=== PATIENT | female | born 1975 | race Caucasian/White ===

== ENCOUNTER → 2016-10-11 | Outpatient (CLI) | payer BC ==
[~2016-10-11] MED LIST: HYDR1CAP2; HYDR1TAB PO
--- NOTE | 2016-10-11 19:54 | Diagnostic Imaging Report ---
Right breast diagnostic mammogram. INDICATION: Followup nodule in the outer aspect of the right breast. The current study was also evaluated with a Computer Aided Detection (CAD) system. FINDINGS: Again seen lobulated 6 mm nodule in the lateral aspect of the right breast without change with suggestion of central lucency may relate to an intramammary lymph node. Heterogeneously dense fibroglandular tissue is seen in the right breast which may decrease mammographic sensitivity without significant change. IMPRESSION: Stable 6 mm nodule in the outer aspect of the right breast may relate to an intramammary lymph node. Another followup in 6 months when the patient is due for her bilateral mammogram is recommended. ACR BI-RADS Category 3: Probably benign findings. Result letter will be mailed to the patient. Note: At least 10% of breast cancer is not imaged by mammography. Dictated by: Dictated on workstation # [id number]
== END ==
LOC: RAD 08:58
PROVIDERS: ATTEND Nurse Practitioner Family
DX: R92.8 Other abnormal and inconclusive findings on diagnostic imaging of breast (principal)

== ENCOUNTER → 2017-02-25 | Outpatient (CLI) | payer BC ==
--- NOTE | 2017-02-25 19:03 | Diagnostic Imaging Report ---
Bilateral diagnostic mammogram 2D views with tomosynthesis. The current study was also evaluated with a Computer Aided Detection (CAD) system. INDICATION: Follow-up nodule in the upper-outer right breast. COMPARISON: 10/11/2016. FINDINGS: The breasts are composed of heterogeneously dense parenchyma which may decrease mammographic sensitivity. There is no suspicious mass, architectural distortion, or suspicious cluster of calcifications seen. Nodule in the upper-outer aspect of the right breast is unchanged and is consistent with an intramammary lymph node. Allowing for technique and positional differences, no suspicious change is seen. IMPRESSION: Dense breasts with no definite change. ACR BI-RADS Category 2: Benign findings. Result letter will be mailed to the patient. Note: At least 10% of breast cancer is not imaged by mammography. Dictated on workstation # [id number]
== END ==
LOC: RAD 07:46
PROVIDERS: ATTEND Nurse Practitioner Family
DX: N63 Unspecified lump in breast (principal)
CPT/HCPCS: 77066

== ENCOUNTER → 2018-12-07 | Outpatient (CLI) | payer BC ==
--- NOTE | 2018-12-07 16:51 | Diagnostic Imaging Report ---
PROCEDURE: US Non-ob pelvis comp/trans. TECHNIQUE: Multiple real-time grayscale images were obtained of the pelvis in various projections endovaginally. Transabdominal imaging was also performed. INDICATION: Right-sided pelvic pain. FINDINGS: Uterus measures 10.0 x 6.4 x 5.5 cm. Endometrium is 5 mm in thickness. There appears to be a fibroid in the anterior uterus near the lower uterine segment measuring 2.1 x 1.8 x 2.4 cm. Ovaries were not visualized. There is no adnexal mass or free fluid detected. IMPRESSION: 1. Probable uterine fibroid. 2. Nonvisualized ovaries. Dictated by: Dictated on workstation # [id number]
== END ==
LOC: RAD 14:59
PROVIDERS: ATTEND Nurse Practitioner Family
DX: N92.0 Excessive and frequent menstruation with regular cycle (principal); R10.2 Pelvic and perineal pain
CPT/HCPCS: 76830; 76856

== ENCOUNTER 2019-02-01 23:52 | Emergency (ER) | payer BC ==
[~2019-02-01] VITALS: Ht 180.3 cm; Wt 90.7 kg
[2019-02-02 00:09] VITALS: BP 117/74
[2019-02-02 00:33] LABS: BILIRUBIN,URINE NEGATIVE (NEGATIVE); CLARITY,URINE CLEAR; COLOR,URINE YELLOW; GLUCOSE, URINE (UA) NEGATIVE (NEGATIVE); KETONES,URINE NEGATIVE (NEGATIVE); LEUKOCYTE ESTERASE ,URINE NEGATIVE (NEGATIVE); NITRITE,URINE NEGATIVE (NEGATIVE); PH,URINE 6 (5-9); PROTEIN,URINE NEGATIVE (NEGATIVE); UROBILINOGEN,URINE NORMAL (NORMAL)
[2019-02-02 00:41] LABS: BACTERIA,URINE NEGATIVE /HPF; SQUAMOUS EPITHELIAL CELL,UR 0-2 /HPF
[2019-02-02 00:46] LABS: AMPHETAMINE SCREEN, URINE NEGATIVE (NEGATIVE); BARBITURATE SCREEN URINE NEGATIVE (NEGATIVE); BENZODIAZEPINES SCREEN URINE NEGATIVE (NEGATIVE); CANNABINOID SCREEN, URINE NEGATIVE (NEGATIVE); COCAINE SCREEN URINE NEGATIVE (NEGATIVE); METHADONE STAT NEGATIVE (NEGATIVE); METHAMPHETAMINE SCREEN URINE S NEGATIVE (NEGATIVE); OPIATE SCREEN URINE POSITIVE (NEGATIVE); OXYCODONE STAT NEGATIVE (NEGATIVE); PROPOXYPHENE STAT NEGATIVE (NEGATIVE); TRICYCLIC ANTIDEPRESSANTS SCRE POSITIVE (NEGATIVE)
[2019-02-02 00:53] LABS: BASOPHILS # (AUTO) 0.1 10^3/uL (0.0-0.1); BASOPHILS % (AUTO) 1 % (0-10); EOSINOPHILS # (AUTO) 0.2 10^3/uL (0.0-0.3); EOSINOPHILS % (AUTO) 3 % (0-10); HEMATOCRIT 39 % (35-52); HEMOGLOBIN 12.9 G/DL (11.5-16.0); LYMPHOCYTES # (AUTO) 1.9 X 10^3 (1.0-4.0); LYMPHOCYTES % (AUTO) 31 % (12-44); MEAN CORPUSCULAR HEMOGLOBIN 30 PG (25-34); MEAN CORPUSCULAR HGB CONC 33 G/DL (32-36); MEAN CORPUSCULAR VOLUME 90 FL (80-99); MEAN PLATELET VOLUME 9.1 FL (7.4-10.4); MONOCYTES # (AUTO) 0.4 X 10^3 (0.0-1.0); MONOCYTES % (AUTO) 6 % (0-12); NEUTROPHILS # (AUTO) 3.6 X 10^3 (1.8-7.8); NEUTROPHILS % (AUTO) 59 % (42-75); PLATELET COUNT 278 10^3/uL (130-400); RED CELL DISTRIBUTION WIDTH 14.1 % (10.0-14.5); WHITE BLOOD COUNT 6.2 10^3/uL (4.3-11.0)
[2019-02-02 01:06] LABS: ALANINE AMINOTRANSFERASE 20 U/L (0-55); ALKALINE PHOSPHATASE 88 U/L (40-136); BILIRUBIN,TOTAL 0.1 MG/DL (0.1-1.0); BUN/CREATININE RATIO 7; CALCIUM 8.6 MG/DL (8.5-10.1); CARBON DIOXIDE 18 MMOL/L (21-32); CHLORIDE 106 MMOL/L (98-107); CREATININE SERUM 0.75 MG/DL (0.60-1.30); GFR ESTIMATED > 60; GLUCOSE 111 MG/DL (70-105); POTASSIUM 3.4 MMOL/L (3.6-5.0); SODIUM 137 MMOL/L (135-145); TOTAL PROTEIN 6.8 GM/DL (6.4-8.2)
[2019-02-02 01:17] LABS: INR 0.9 (0.8-1.4); PROTHROMBIN TIME PATIENT 12.3 SEC (12.2-14.7)
[2019-02-02] MEDS ORDERED: AZITHROMYCIN 250 MG TAB (ZITHROMAX) PO ONE (01:30)
[2019-02-02] MEDS ORDERED: methylPREDNISolone 125 MG (Solu-MEDROL) VIAL IVP ONE (01:30)
[2019-02-02] MEDS ORDERED: PROM118S4 PO (01:30)
[2019-02-02] MEDS ORDERED: METH4TAB PO (01:30)
[2019-02-02] MEDS ORDERED: AZIT500T PO (01:30)
[2019-02-02] MEDS ORDERED: PROMETHAZINE/ CODEINE SYRUP 5 ML UDC PO ONE (01:30)
[2019-02-02] MEDS ORDERED: BENZONATATE 100 MG (TESSALON) CAPSULE PO SCH (01:30)
[2019-02-02] MEDS ORDERED: cefTRIAXone FOR IV USE 1,000 MG in WATER (STERILE) FOR INJECTION 10 ML IV ONE (01:30)
[2019-02-02] MEDS ORDERED: BENZ100C18 PO (01:30)
[2019-02-02] MEDS ORDERED: CEFD300C3 PO (01:30)
--- NOTE | 2019-02-02 01:31 | ED Cough/URI ---
General Chief Complaint: Cough/Cold/Flu Symptoms Stated Complaint: CONGESTION,COUGH,POSS TEMP Nursing Triage Note: C/O "BEING SICK FOR A WEEK" COUGH AND SHORTNESS OF BREATH TONIGHT Sepsis Screen: No Definite Risk Source: patient History of Present Illness Date Seen by Provider: Feb 02, 2019 Time Seen by Provider: 00:13 Initial Comments PT ARRIVES VIA POV FROM HOME C/O NASAL CONGESTION AND PRODUCTIVE COUGH WITH GREEN SPUTUM X 1 WEEK HAS HAD SUBJECTIVE FEVER AND SWEATS C/O SHORTNESS OF BREATH TONIGHT, WITH COUGHING CHEST HURTS WITH COUGHING NO RELIEF WITH OTC TUSSIN COUGH MEDICATION NO KNOWN SICK CONTACTS NO HISTORY OF RESPIRATORY PROBLEMS PT SMOKES 1 PPD PT ALSO DRINKS 4-6 BEERS EVERY DAY, INCLUDING TODAY PT HAS BEEN IN [place] ALL WEEK AND JUST GOT BACK TODAY, AND HAS AN APPOINTMENT WITH DR. JOSHI IN THE MORNING FOR THIS PROBLEM HAS NOT SOUGHT CARE UNTIL TONIGHT. LMP 1 WEEK AGO. NO CONTROL. WAS SUPPOSED TO START OCP'S BUT HAS NOT STARTED THEM YET. PCP: DR. JOSHI Allergies and Home Medications Allergies Coded Allergies: No Known Drug Allergies (Unverified Allergy, Mild, 09/20/09) Home Medications Azithromycin 500 Mg Tablet, 500 MG PO DAILY FOR INFECTION Prescribed by: YEVGENIY BILLINGSLEY on 02/02/19129 Benzonatate 100 Mg Capsule, 1-2 TAB PO TID Prescribed by: YEVGENIY BILLINGSLEY on 02/02/19129 Cefdinir 300 Mg Capsule, 300 MG PO BID Prescribed by: YEVGENIY BILLINGSLEY on 02/02/19129 D-Methorphan Hb/Prometh HCl 118 Ml Syrup, 1-2 TSP PO Q4H Prescribed by: YEVGENIY BILLINGSLEY on 02/02/19129 Hydrocodone Bit/Acetaminophen 1 Each Tablet, 1-2 EACH PO Q4HR PRN Prescribed by: MARILEE LA on 09/20/09 1347 Methylprednisolone 4 Mg Tab.ds.pk, 4 MG PO UD Prescribed by: YEVGENIY BILLINGSLEY on 02/02/19129 Patient Home Medication List Home Medication List Reviewed: Yes Review of Systems Review of Systems Constitutional: chills, diaphoresis, fever EENTM: see HPI, nose congestion Respiratory: see HPI, cough, phlegm, short of breath; No wheezing Cardiovascular: see HPI, chest pain Gastrointestinal: no symptoms reported Genitourinary: no symptoms reported : No LMP: Jan 23, 2019 Musculoskeletal: no symptoms reported Skin: no symptoms reported Psychiatric/Neurological: No Symptoms Reported Hematologic/Lymphatic: No Symptoms Reported Immunological/Allergic: no symptoms reported Past Ihzrtgz-Poziij-Oitbmt Hx Patient Social History Alcohol Use: Regular Use (4-6 BEERS A DAY, EVERY DAY) Number of Drinks Today: 5 Alcohol Beverage of Choice: Beer Recreational Drug Use: No Smoking Status: Current Everyday Smoker (1 PPD) Type Used: Cigarettes (1 PPD) Recent Foreign Travel: No Contact w/Someone Who Travel: No Recent Infectious Disease Expo: No Recent Hopitalizations: No Physical Abuse: No Sexual Abuse: No Mistreated: No Fear: No Seasonal Allergies Seasonal Allergies: No Past Medical History Surgeries: Yes ("BILATERAL MAXILLARY DISLOCATION WITH SURGICAL INTERVENTION"; RIGHT SHOULDER SURGERY) Appendectomy, Section, Orthopedic, Tonsillectomy Respiratory: No Cardiac: Yes Hypertension Neurological: No : No Last Menstrual Period: Jan 23, 2019 Reproductive Disorders: No Genitourinary: No Gastrointestinal: No Musculoskeletal: Yes (RIGHT SHOULDER SURGERY; CHRONIC OPIATE AND MUSCLE RELAXANT USE. ) Arthritis Endocrine: Yes (SCLERODERMA) HEENT: No Cancer: No Psychosocial: Yes Depression Integumentary: No Blood Disorders: No Physical Exam Vital Signs - First Documented Capillary Refill : Less Than 3 Seconds Height: 5'11" Weight: 200lbs. oz. 90.522038ip; 27.89 BMI Method:Stated General Appearance: WD/WN, no apparent distress, other (CONTINUOUS, HARSH FORCED, DRY COUGH. 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, no motor/sensory deficits, alert, normal mood/affect, oriented x 3 Skin: normal color, warm/dry Focused Exam Lactate Level 02/02/19 00:33: Lactic Acid Level 2.00 Lactic Acid Level Laboratory Tests Test 02/02/19 00:33 Lactic Acid Level 2.00 MMOL/L (0.50-2.00) Progress/Results/Core Measures Suspected Sepsis Recent Fever Within 48 Hours: No Infection Criteria Present: Suspected New Infection New/Unexplained Altered Menta: No Sepsis Screen: No Definite Risk SIRS Temperature:97.6 Pulse: 91 Respiratory Rate: 20 Laboratory Tests 02/02/19 00:44: White Blood Count 6.2 Blood Pressure 117 /74 Mean: 88 02/02/19 00:33: Lactic Acid Level 2.00 Laboratory Tests 02/02/19 00:33: Creatinine 0.75, Total Bilirubin 0.1 02/02/19 00:44: Platelet Count 278 02/02/19 00:54: INR Comment 0.9 Results/Orders Lab Results Laboratory Tests Test 02/02/19 00:28 02/02/19 00:33 02/02/19 00:44 02/02/19 00:54 Range/Units Urine Color YELLOW Urine Clarity CLEAR Urine pH 6 5-9 Urine Specific [place] 1.010 L 1.016-1.022 Urine Protein NEGATIVE NEGATIVE Urine Glucose (UA) NEGATIVE NEGATIVE Urine Ketones NEGATIVE NEGATIVE Urine Nitrite NEGATIVE NEGATIVE Urine Bilirubin NEGATIVE NEGATIVE Urine Urobilinogen NORMAL NORMAL MG/DL Urine Leukocyte Esterase NEGATIVE NEGATIVE Urine RBC (Auto) NEGATIVE NEGATIVE Urine RBC NONE /HPF Urine WBC NONE /HPF Urine Squamous Epithelial Cells 0-2 /HPF Urine Crystals NONE /LPF Urine Bacteria NEGATIVE /HPF Urine Casts NONE /LPF Urine Mucus SMALL H /LPF Urine Culture Indicated CULTURE PENDING Urine Opiates Screen POSITIVE H NEGATIVE Urine Oxycodone Screen NEGATIVE NEGATIVE Urine Methadone Screen NEGATIVE NEGATIVE Urine Propoxyphene Screen NEGATIVE NEGATIVE Urine Barbiturates Screen NEGATIVE NEGATIVE Ur Tricyclic Antidepressants Screen POSITIVE H NEGATIVE Urine Phencyclidine Screen NEGATIVE NEGATIVE Urine Amphetamines Screen NEGATIVE NEGATIVE Urine Methamphetamines Screen NEGATIVE NEGATIVE Urine Benzodiazepines Screen NEGATIVE NEGATIVE Urine Cocaine Screen NEGATIVE NEGATIVE Urine Cannabinoids Screen NEGATIVE NEGATIVE Sodium Level 137 135-145 MMOL/L Potassium Level 3.4 L 3.6-5.0 MMOL/L Chloride Level 106 98-107 MMOL/L Carbon Dioxide Level 18 L 21-32 MMOL/L Anion Gap 13 5-14 MMOL/L Blood Urea Nitrogen 5 L 7-18 MG/DL Creatinine 0.75 0.60-1.30 MG/DL Estimat Glomerular Filtration Rate > 60 BUN/Creatinine Ratio 7 Glucose Level 111 H 70-105 MG/DL Lactic Acid Level 2.00 0.50-2.00 MMOL/L Calcium Level 8.6 8.5-10.1 MG/DL Corrected Calcium 8.6 8.5-10.1 MG/DL Total Bilirubin 0.1 0.1-1.0 MG/DL Aspartate Amino Transf (AST/SGOT) 25 5-34 U/L Alanine Aminotransferase (ALT/SGPT) 20 0-55 U/L Alkaline Phosphatase 88 40-136 U/L Total Protein 6.8 6.4-8.2 GM/DL Albumin 4.0 3.2-4.5 GM/DL Serum Test, Qualitative NEGATIVE NEGATIVE Serum Alcohol 125 H <10 MG/DL White Blood Count 6.2 4.3-11.0 10^3/uL Red Blood Count 4.34 L 4.35-5.85 10^6/uL Hemoglobin 12.9 11.5-16.0 G/DL Hematocrit 39 35-52 % Mean Corpuscular Volume 90 80-99 FL Mean Corpuscular Hemoglobin 30 25-34 PG Mean Corpuscular Hemoglobin Concent 33 32-36 G/DL Red Cell Distribution Width 14.1 10.0-14.5 % Platelet Count 278 130-400 10^3/uL Mean Platelet Volume 9.1 7.4-10.4 FL Neutrophils (%) (Auto) 59 42-75 % Lymphocytes (%) (Auto) 31 12-44 % Monocytes (%) (Auto) 6 0-12 % Eosinophils (%) (Auto) 3 0-10 % Basophils (%) (Auto) 1 0-10 % Neutrophils # (Auto) 3.6 1.8-7.8 X 10^3 Lymphocytes # (Auto) 1.9 1.0-4.0 X 10^3 Monocytes # (Auto) 0.4 0.0-1.0 X 10^3 Eosinophils # (Auto) 0.2 0.0-0.3 10^3/uL Basophils # (Auto) 0.1 0.0-0.1 10^3/uL Prothrombin Time 12.3 12.2-14.7 SEC INR Comment 0.9 0.8-1.4 Activated Partial Thromboplast Time 31 24-35 SEC Micro Results Microbiology 02/02/19 Influenza Types A,B Antigen ([facility]) - Final, Complete My Orders Orders - YEVGENIY BILLINGSLEY DO Cbc With Automated Diff (02/02/19:17) Comprehensive Metabolic Panel (02/02/19:17) Blood Culture (02/02/19:17) Sputum Culture (02/02/19:17) Urinalysis (02/02/19:17) Urine Culture (02/02/19:17) Protime With Inr (02/02/19:17) Partial Thromboplastin Time (02/02/19:17) Ed Iv/Invasive Line Start (02/02/19:17) Ed Iv/Invasive Line Start (02/02/19:17) Vital Signs Adult Sepsis Patie Q15M (02/02/19:17) O2 (02/02/19:17) Remove Rings In Anticipation O (02/02/19:17) Lactic Acid Analyzer (02/02/19:17) Monitor-Rhythm Ecg Trace Only (02/02/19:17) Chest Pa/Lat (2 View) (02/02/19:17) Hcg,Qualitative Serum (02/02/19:17) Alcohol (02/02/19 00:24) Drug Screen Stat (Urine) (02/02/19 00:24) Influenza A And B Antigens (02/02/19 00:24) Ceftriaxone For Iv Use (Rocephin For I (02/02/19 01:30) Methylprednisolone Sod Succ (Solu-Medrol (02/02/19 01:30) Benzonatate Capsule (Tessalon Perles) (02/02/19 01:30) Promethazine/ Codeine Syrup (Phenergan W (02/02/19 01:30) Azithromycin Tablet (Zithromax Tablet) (02/02/19 01:30) Medications Given in ED Current Medications Medications Dose Ordered Sig/Tonie Route Start Time Stop Time Status Last Admin Dose Admin Azithromycin 500 mg ONCE ONCE PO 02/02/19 01:30 02/02/19 01:31 DC 02/02/19 01:51 500 MG Ceftriaxone Sodium 1000 mg/ Sterile Water 10 ml @ 200 mls/hr ONCE ONCE IV 02/02/19 01:30 02/02/19 01:32 DC 02/02/19 01:50 200 MLS/HR Methylprednisolone Sodium Succinate 125 mg ONCE ONCE IVP 02/02/19 01:30 02/02/19 01:31 DC 02/02/19 01:50 125 MG Promethazine HCl/ Codeine 5 ml ONCE ONCE PO 02/02/19 01:30 02/02/19 01:31 DC 02/02/19 01:51 5 ML Vital Signs/I&O 02/02/19 02/02/19 02/02/19 02/02/19 00:09 00:09 00:09 00:09 Temp 97.6 97.6 97.6 Pulse 91 91 91 Resp 20 20 20 B/P (MAP) 117/74 117/74 (88) 117/74 (88) Pulse Ox 97 97 97 O2 Delivery Room Air Room Air Room Air 02/02/19 01:58 Temp 97.6 Pulse 84 Resp 20 B/P (MAP) 137/92 (107) Pulse Ox 95 O2 Delivery Room Air Capillary Refill : Less Than 3 Seconds Blood Pressure Mean: 88 Progress Note : Progress Note GIVEN TESSALON AND PHENERGAN + CODEINE--NO FURTHER COUGHING FOR REMAINDER OF ER STAY VITALS REMAINED STABLE FOR ER STAY Diagnostic Imaging Comments CXR--NO ACUTE PROCESS, PENDING RADIOLOGIST REVIEW Reviewed: Reviewed by Me Departure Impression Primary Impression: Bronchitis Additional Impressions: Upper respiratory infection Alcohol intoxication in active alcoholic Disposition: 01 HOME, SELF-CARE Condition: Stable Departure-Patient Inst. Referrals: BAY JOSHI MD (PCP/Family) Primary Care Physician Patient Instructions: Acute Bronchitis, Adult (DC), Bacterial Upper Respiratory Infection, Adult (DC) Add. Discharge Instructions: LOTS OF CLEAR LIQUIDS TYLENOL 1 GRAM 4 TIMES A DAY NEEDED FOR PAIN OR FEVER NO ALCOHOL NO SMOKING FOLLOW UP WITH DR. JOSHI FOR FURTHER CARE All discharge instructions reviewed with patient and/or family. Voiced understanding. Scripts Azithromycin (Zithromax) 500 Mg Tablet 500 MG PO DAILY, #5 TAB FOR INFECTION Prov: YEVGENIY BILLINGSLEY DO 02/02/19 Benzonatate (TESSALON PERLES) 100 Mg Capsule 1-2 TAB PO TID for Cough, #30 CAP Prov: YEVGENIY BILLINGSLEY DO 02/02/19 D-Methorphan Hb/Prometh HCl (Promethazine-Dm Syrup) 118 Ml Syrup 1-2 TSP PO Q4H for Cough, #120 ML Prov: YEVGENIY BILLINGSLEY DO 02/02/19 Methylprednisolone (Medrol) 4 Mg Tab.ds.pk 4 MG PO UD, #1 PKG Prov: YEVGENIY BILLINGSLEY DO 02/02/19 Cefdinir (Cefdinir) 300 Mg Capsule 300 MG PO BID for FOR INFECTION, #20 CAP Prov: YEVGENIY BILLINGSLEY DO 02/02/19 YEVGENIY BILLINGSLEY DO Feb 02, 2019 01:31
[2019-02-02 01:58] VITALS: BP 137/92
--- NOTE | 2019-02-02 06:42 | Diagnostic Imaging Report ---
EXAM: CHEST PA/LAT (2 VIEW) INDICATION: Cough. COMPARISON: 01/31/2008. FINDINGS: Normal heart size and pulmonary vascularity. No dense consolidation, pleural effusion or pneumothorax. No acute osseous findings. No significant change. IMPRESSION: Negative chest. Dictated by: Dictated on workstation # [id number]
== END 2019-02-02 02:00 | disposition home or self-care (01) ==
LOC: EDUNIT# 23:52 → ER 23:54
DX: J40 Bronchitis, not specified as acute or chronic (principal); J06.9 Acute upper respiratory infection, unspecified; I10 Essential (primary) hypertension; F32.9 Major depressive disorder, single episode, unspecified; F10.229 Alcohol dependence with intoxication, unspecified; F17.210 Nicotine dependence, cigarettes, uncomplicated; Z90.89 Acquired absence of other organs; Y90.6 Blood alcohol level of 120-199 mg/100 ml
CPT/HCPCS: 36415; 71046; 80053; 80306; 80320; 81000; 83605; 84703; 85025; 85610; 85730; 87040; 87088; 87804; 93041; 96374; 96375

== ENCOUNTER → 2020-06-10 | Outpatient (CLI) | payer BC ==
[~2020-06-10] MED LIST changes: +AZIT500T PO; +BENZ100C18 PO; +CEFD300C3 PO; +METH4TAB PO; +PROM118S5 PO
--- NOTE | 2020-06-10 21:05 | Diagnostic Imaging Report ---
Digital mammogram, bilateral screening COMPARISON: 02/25/2017. At this time, there are no current complaints. The current study was also evaluated with a Computer Aided Detection (CAD) system. FINDINGS: The fibroglandular tissue in both breasts is heterogeneously dense. This does limit the sensitivity of this exam. Overall, there does not appear to have been any significant change when compared to the prior study. No primary or secondary sign of malignancy is noted. IMPRESSION: 1. There is no radiographic evidence for malignancy. 2. The patient should have her annual bilateral screening mammogram on schedule in May of 2021. ACR category 1 ACR BI-RADS Category 1: Negative. Result letter will be mailed to the patient. Note: At least 10% of breast cancer is not imaged by mammography. Dictated by: Dictated on workstation # [id number]
== END ==
LOC: RAD 13:15
PROVIDERS: ATTEND Family Medicine
DX: Z12.31 Encounter for screening mammogram for malignant neoplasm of breast (principal)
CPT/HCPCS: 77063; 77067

== ENCOUNTER 2021-12-07 22:32 | Emergency (ER) | payer BC ==
[2021-12-07 22:50] VITALS: BP 177/123
[2021-12-07] MEDS ORDERED: ONDANSETRON 4 MG (ZOFRAN) ORAL DISSOLVE TAB PO STA (23:06)
[2021-12-07] MEDS ORDERED: ONDA4TAB11 PO (23:09)
[2021-12-07] MEDS ORDERED: KETO10TA PO (23:09)
--- NOTE | 2021-12-07 23:09 | ED General ---
General Chief Complaint: Head/Cervical Problems Stated Complaint: COVID POSITIVE/HEADACHE/NAUSEA/COUGH/FEVER Nursing Triage Note: pt presents with c/o h/a. reports she was covid + this morning and started on steroids. reports she has taken three hydrocodone today with the last dose being at 2030. reports no relief of h/a Source of Information: Patient History of Present Illness Date Seen by Provider: Dec 07, 2021 Time Seen by Provider: 22:55 Initial Comments PT ARRIVES VIA POV FROM HOME STATES SHE STARTED GETTING SICK YESTERDAY WITH : -SUBJECTIVE FEVER AND CHILLS AND SWEATS--HAS NOT CHECKED HER TEMP AT ANY TIME -NON-PRODUCTIVE COUGH AND CONGESTION -CLEAR NASAL DRAINAGE -MILD SORE THROAT -MILD NAUSEA, NO VOMITING. NO DIARRHEA -HEADACHE--IS HER MAIN COMPLAINT NOW -BODY ACHES TESTED + FOR COVID-19 EARLIER TODAY AT [facility], NO RX OR TREATMENT GIVEN PT HAS TAKEN A TOTAL OF 3 HYDROCODONE THROUGHOUT THE DAY TODAY, LAST DOSE WAS AT 2030, WELL 2 IBUPROFEN THIS MORNING STATES NO RELIEF OF HEADACHE NO SHORTNESS OF BREATH NO NECK PAIN OR STIFFNESS NO VISION CHANGES, BUT IS LIGHT SENSITIVE NO LOSS OF TASTE/SMELL PT HAS NOT HAD COVID VACCINE PT STATES SHE HAS HAD COVID "4 TIMES" STATES THE FIRST TIME WAS IN APRIL OF 2019--NO TESTS WERE DONE, IT WAS NOT PREVALENT IN [place] spring--BUT PT STATES SHE "KNOWS SHE HAD IT THEN" 2 OTHER TIMES SHE DID NOT RECEIVE ANY TREATMENT FOR PT HAS HISTORY OF HTN, AND TOOK 1 METOPROLOL AT 1700 TODAY. PCP: DR. JOSHI Allergies and Home Medications Allergies Coded Allergies: No Known Drug Allergies (Unverified Allergy, Mild, 09/20/09) Patient Home Medication List Home Medication List Reviewed: Yes Azithromycin (Zithromax) 500 Mg Tablet, 500 MG PO DAILY Prescribed by: YEVGENIY BILLINGSLEY on 02/02/19129 Benzonatate (Tessalon Perles) 100 Mg Capsule, 1-2 TAB PO TID Prescribed by: YEVGENIY BILLINGSLEY on 02/02/19129 Cefdinir (Cefdinir) 300 Mg Capsule, 300 MG PO BID Prescribed by: YEVGENIY BILLINGSLEY on 02/02/19129 D-Methorphan Hb/Prometh HCl (Promethazine-Dm Syrup) 118 Ml Syrup, 1-2 TSP PO Q4H Prescribed by: YEVGENIY BILLINGSLEY on 02/02/19 013 Hydrocodone Bit/Acetaminophen (Vicodin 5-500 Tablet) 1 Each Tablet, 1-2 EACH PO Q4HR PRN Prescribed by: MARILEE LA on 09/20/09 1347 Ketorolac Tromethamine (Ketorolac Tromethamine) 10 Mg Tablet, 10 MG PO Q6H Prescribed by: YEVGENIY BILLINGSLEY on 12/07/212308 Methylprednisolone (Medrol) 4 Mg Tab.ds.pk, 4 MG PO UD Prescribed by: YEVGENIY BILLINGSLEY on 02/02/19129 Ondansetron (Ondansetron Odt) 4 Mg Tab.rapdis, 4 MG PO Q4H Prescribed by: YEVGENIY BILLINGSLEY on 12/07/212308 Review of Systems Review of Systems Constitutional: see HPI, chills, diaphoresis, fever, malaise EENTM: see HPI, nose congestion, throat pain Respiratory: see HPI, cough; No short of breath Cardiovascular: no symptoms reported Gastrointestinal: see HPI; No abdominal pain, No diarrhea; nausea; No vomiting Genitourinary: no symptoms reported Musculoskeletal: no symptoms reported Skin: no symptoms reported; No rash Psychiatric/Neurological: See HPI, Headache Hematologic/Lymphatic: No Symptoms Reported Immunological/Allergic: no symptoms reported Past Afjtyrz-Dtlhew-Axoefy Hx Patient Social History Tobacco Use?: Yes (1 PPD) Tobacco type used: Cigarettes Smoking Status: Current Everyday Smoker Substance use?: Yes Substance type: Marijuana Additional substance use comme: CHRONIC OPIATE AND MUSCLE RELAXANT USE Substance frequency: Daily Alcohol Use?: Yes (HX OF ABUSE, CLAIMS TO HAVE "CUT BACK" "4-6 BEERS A DAY" ) Alcohol type: Beer Alcohol Frequency: Daily Pt feels they are or have been: No Immunizations Up To Date Influenza Vaccine Up-to-Date: No; Not Current Seasonal Allergies Seasonal Allergies: No Past Medical History Surgeries: Yes Appendectomy, Section, Orthopedic, Tonsillectomy Respiratory: No Cardiac: Yes Hypertension Neurological: No : No Last Menstrual Period: Nov 30, 2021 Reproductive Disorders: No Genitourinary: No Gastrointestinal: No Musculoskeletal: Yes (RIGHT SHOULDER SURGERY; CHRONIC OPIATE AND MUSCLE RELAXANT USE. ) Arthritis Endocrine: Yes (SCLERODERMA) HEENT: No Cancer: No Psychosocial: Yes Depression Integumentary: No Blood Disorders: No Physical Exam Vital Signs Vital Signs - First Documented 12/07/21 22:50 Temp 37.6 Pulse 78 Resp 18 B/P (MAP) 177/123 (141) Pulse Ox 96 O2 Delivery Room Air Capillary Refill : Height, Weight, BMI Height: 5'11" Weight: 200lbs. oz. 90.127414gd; 27.89 BMI Method:Stated General Appearance: No Apparent Distress, WD/WN HEENT: PERRL/EOMI, TMs Normal, Normal ENT Inspection, Pharynx Normal, Moist Mucous Membranes, Photophobia (MILD) Neck: Full Range of Motion, Normal Inspection, Non Tender, Supple; No Lymphadenopathy (L), No Lymphadenopathy (R) Respiratory: Normal Breath Sounds, No Accessory Muscle Use, No Respiratory Distress Cardiovascular: Regular Rate, Rhythm, No Edema, No JVD, No Murmur, Normal Peripheral Pulses Gastrointestinal: Non Tender, Soft Extremity: Normal Capillary Refill, Normal Inspection, No Pedal Edema Neurologic/Psychiatric: Alert, Oriented x3, No Motor/Sensory Deficits, Normal Mood/Affect, drink mixer II-XII Norm as Tested Skin: Normal Color, Warm/Dry; No Rash Progress/Results/Core Measures Suspected Sepsis SIRS Temperature: Pulse: 78 Respiratory Rate: 18 Blood Pressure 177 /123 Mean: 141 Results/Orders My Orders Orders - YEVGENIY BILLINGSLEY DO Ketorolac Injection (Toradol Injection) (12/07/21 23:15) Ondansetron Oral Dissolve Tab (Zofran (12/07/21 23:06) Medications Given in ED Current Medications Medications Dose Ordered Sig/Tonie Route Start Time Stop Time Status Last Admin Dose Admin Ketorolac Tromethamine 60 mg ONCE ONCE IM 12/07/21 23:15 12/07/21 23:16 DC 12/07/21 23:13 60 MG Vital Signs/I&O 12/07/21 22:50 Temp 37.6 Pulse 78 Resp 18 B/P (MAP) 177/123 (141) Pulse Ox 96 O2 Delivery Room Air Capillary Refill : Blood Pressure Mean: 141 Progress Note : Progress Note PLACED IN ISOLATION ROOM PPE WORN AT ALL TIMES GIVEN TORADOL AND ZOFRAN PT DECLINES ANY TREATMENT FOR COVID AT THIS TIME. ONLY WANTS MEDICATIONS FOR HER HEADACHE AND NAUSEA Departure Impression Primary Impression: COVID-19 virus infection Disposition: HOME, SELF-CARE Condition: Stable Departure-Patient Inst. Decision time for Depature: 23:10 Referrals: BAY JOSHI MD (PCP/Family) Primary Care Physician Patient Instructions: COVID-19 ED, Preventing the Spread of an Infectious Disease Add. Discharge Instructions: TAKE YOUR HYDROCODONE 1-2 EVERY 4 HOURS NEEDED FOR PAIN LOTS OF CLEAR LIQUIDS OVER THE COUNTER MUCINEX DM FOR COUGH AND CONGESTION TYLENOL NEEDED FOR FEVER OVER 101 FOLLOW UP WITH YOUR DR IN 3-4 DAYS IF NO BETTER, RETURN TO ER IF WORSE QUARANTINE FOR 10 DAYS All discharge instructions reviewed with patient and/or family. Voiced understanding. Scripts Ketorolac Tromethamine (Ketorolac Tromethamine) 10 Mg Tablet 10 MG PO Q6H for Pain, #15 TAB Prov: YEVGENIY BILLINGSLEY DO 12/07/21 Ondansetron (Ondansetron Odt) 4 Mg Tab.rapdis 4 MG PO Q4H for Nausea/Vomiting, #10 TAB Prov: YEVGENIY BILLINGSLEY DO 12/07/21 YEVGENIY BILLINGSLEY DO Dec 07, 2021 23:09
[2021-12-07] MEDS ORDERED: KETOROLAC 60 MG/2 ML VIAL IM ONE (23:15)
== END 2021-12-07 23:17 | disposition home or self-care (01) ==
LOC: EDUNIT# 22:32 → ER 22:33
DX: U07.1 COVID-19 (principal); F17.210 Nicotine dependence, cigarettes, uncomplicated; Z73.0 Burn-out; Z28.310 Unvaccinated for COVID-19
CPT/HCPCS: 99284

== ENCOUNTER → 2022-07-14 | Outpatient (CLI) | payer BC ==
[~2022-07-14] MED LIST changes: +KETO10TA PO; +ONDA4TAB11 PO
[2022-07-14 15:18] LABS: BASOPHILS # (AUTO) 0.1 10^3/uL (0.0-0.1); BASOPHILS % (AUTO) 1 % (0-10); EOSINOPHILS # (AUTO) 0.2 10^3/uL (0.0-0.3); EOSINOPHILS % (AUTO) 3 % (0-10); HEMATOCRIT 39 % (35-52); HEMOGLOBIN 12.7 g/dL (11.5-16.0); LYMPHOCYTES # (AUTO) 1.6 10^3/uL (1.0-4.0); LYMPHOCYTES % (AUTO) 28 % (12-44); MEAN CORPUSCULAR HEMOGLOBIN 29 pg (25-34); MEAN CORPUSCULAR HGB CONC 33 g/dL (32-36); MEAN CORPUSCULAR VOLUME 88 fL (80-99); MONOCYTES # (AUTO) 0.5 10^3/uL (0.0-1.0); MONOCYTES % (AUTO) 8 % (0-12); NEUTROPHILS # (AUTO) 3.5 10^3/uL (1.8-7.8); NEUTROPHILS % (AUTO) 61 % (42-75); PLATELET COUNT 280 10^3/uL (130-400); WHITE BLOOD COUNT 5.8 10^3/uL (4.3-11.0)
--- NOTE | 2022-07-14 16:05 | Diagnostic Imaging Report ---
PROCEDURE: US Non-ob pelvis comp/trans. TECHNIQUE: Multiple realtime grayscale images were obtained of the pelvis in various projections endovaginally. Transabdominal imaging was also performed. INDICATION: Abnormal vaginal bleeding. COMPARISON: 12/07/2018 FINDINGS: Uterus is anteverted and measures 9.6 x 5.7 x 7.3 cm. Myometrial mass is again identified anteriorly within the lower uterine segment. Measures 1.9 x 1.3 x 2.3 cm. This is in comparison to 2.1 x 1.8 x 2.4 cm previously. No other suspicious myometrial masses are seen. Note is made that the endometrium is thickened. It measures 15 mm in AP thickness. Endometrial stripe is otherwise homogeneously hyperechoic. Visualized portions of the cervix show complex debris-filled nabothian cyst that measures 1.4 x 0.8 x 1.5 cm. No adnexal masses or free fluid are seen. Ovaries cannot be adequately visualized on either side due to overlying gas-filled bowel. IMPRESSION: 1. Redemonstration of uterine fibroid. 2. Prominence of the endometrial stripe. This may be related to underlying endometrial thickening. Endometrial polyp or mass cannot be entirely excluded. 3. Complex nabothian cyst. Dictated by: Dictated on workstation # [id number]
== END ==
LOC: LAB 14:14
PROVIDERS: ATTEND Family Medicine
DX: N92.1 Excessive and frequent menstruation with irregular cycle (principal); N92.0 Excessive and frequent menstruation with regular cycle
CPT/HCPCS: 36415; 76830; 76856; 82672; 84144; 84702; 85025

== ENCOUNTER 2022-08-19 05:42 | Outpatient (CLI) | payer BC ==
[~2022-08-19] VITALS: Ht 180.3 cm; Wt 100.0 kg
[2022-08-19] MEDS ORDERED: CYCL10TA25 PO (10:30)
[2022-08-19] MEDS ORDERED: HYDR-3817 PO (10:30)
[2022-08-19] MEDS ORDERED: METO50TA7 PO (10:30)
[2022-08-19] MEDS ORDERED: PROG100C11 PO (10:30)
== END 2022-08-19 16:53 | disposition home or self-care (01) ==
LOC: PREOP 05:42
PROVIDERS: ATTEND Obstetrics & Gynecology
DX: Z01.818 Encounter for other preprocedural examination (principal)

== ENCOUNTER 2022-08-24 08:36 | Day surgery (SDC) | payer BC ==
[2022-08-24] VITALS (9 sets, daily range): BP systolic 130–149; BP diastolic 86–106
[~2022-08-24] VITALS: Ht 180.3 cm; Wt 100.0 kg
[~2022-08-24 08:36] MED LIST changes: +CYCL10TA25 PO; +HYDR-3817 PO; +METO50TA7 PO; +PROG100C11 PO
[2022-08-24] MEDS ORDERED: BUPIVACAINE 0.25% 30 ML (SENSORCAINE) VIAL ONE (08:52)
[2022-08-24] MEDS ORDERED: MIDAZOLAM 2 MG/2 ML (VERSED) VIAL ONE (09:16)
[2022-08-24] MEDS ORDERED: proPOfol 200 MG/20 ML (DIPRIVAN) VIAL IV ONE (09:16)
[2022-08-24] MEDS ORDERED: fentaNYL INJ 100 MCG/2 ML AMP ONE (09:16)
[2022-08-24 09:23] LABS: BASOPHILS # (AUTO) 0.1 10^3/uL (0.0-0.1); BASOPHILS % (AUTO) 2 % (0-10); EOSINOPHILS # (AUTO) 0.2 10^3/uL (0.0-0.3); EOSINOPHILS % (AUTO) 4 % (0-10); HEMATOCRIT 37 % (35-52); HEMOGLOBIN 12.2 g/dL (11.5-16.0); LYMPHOCYTES # (AUTO) 1.6 10^3/uL (1.0-4.0); LYMPHOCYTES % (AUTO) 41 % (12-44); MEAN CORPUSCULAR HEMOGLOBIN 29 pg (25-34); MEAN CORPUSCULAR HGB CONC 33 g/dL (32-36); MEAN CORPUSCULAR VOLUME 87 fL (80-99); MEAN PLATELET VOLUME 9.1 fL (9.0-12.2); MONOCYTES # (AUTO) 0.4 10^3/uL (0.0-1.0); MONOCYTES % (AUTO) 9 % (0-12); NEUTROPHILS # (AUTO) 1.7 10^3/uL (1.8-7.8); NEUTROPHILS % (AUTO) 44 % (42-75); PLATELET COUNT 303 10^3/uL (130-400)
[2022-08-24] MEDS ORDERED: LACTATED RINGERS 1,000 ML IV PRN (09:30)
[2022-08-24] MEDS ORDERED: BUPIVACAINE 0.25% 30 ML (SENSORCAINE) VIAL INJ ONE (10:00)
--- NOTE | 2022-08-24 10:05 | Progress Note-Pre Operative ---
Pre-Operative Progress Note Date of Available H&P: Aug 24, 2022 Date H&P Reviewed: Aug 24, 2022 Time H&P Reviewed: 10:00 History & Physical: H&P Reviewed, Patient Examed, No changes noted Pre-Operative Diagnosis: AUB, Thickened endometrium CANDELARIO BARCENAS DO Aug 24, 2022 10:05
[2022-08-24] MEDS ORDERED: LIDOCAINE PF 2% 5 ML (XYLOCAINE) VIAL ONE (10:12)
[2022-08-24] MEDS ORDERED: ONDANSETRON 4 MG/2 ML (SDV) Z0FRAN ONE (10:13)
[2022-08-24] MEDS ORDERED: KETOROLAC 30 MG/ML VIAL ONE (10:13)
[2022-08-24] MEDS ORDERED: KETOROLAC 30 MG/ML VIAL IVP ONE (10:15)
[2022-08-24] MEDS ORDERED: D5 LR IV SOLUTION 1,000 ML IV SCH (10:15)
[2022-08-24] MEDS ORDERED: ONDANSETRON 4 MG/2 ML (SDV) Z0FRAN IVP PRN (10:15)
--- NOTE | 2022-08-24 10:16 | Discharge Inst-Women's Service ---
Discharge Inst-Women's Serv Depart Medication/Instructions New, Converted or Re-Newed RX: Transmitted to Pharmacy Problems Reviewed?: Yes Consults/Follow Up Additional Follow Up: Yes Activity Activity: Activity as Tolerated Driving Instructions: You May Drive (tomorrow) NO SMOKING: NO SMOKING Nothing Inside Vagina: No Douching, No [address], No Tampons Diet Discharge Diet: No Restrictions Symptoms to Report to : Bleeding Excessive, Pain Increased, Fever Over 101 Degrees F, Vaginal Bleeding Increase, Questions/Concerns CANDELARIO BARCENAS DO Aug 24, 2022 10:16
[2022-08-24] MEDS ORDERED: SEVOFLURANE (ULTANE) 15 ML INHAL SOLN ONE (10:18)
--- NOTE | 2022-08-24 10:26 | Anesthesia-General Post-Op ---
General Patient Condition Mental Status/LOC: Same as Preop Cardiovascular: Satisfactory Nausea/Vomiting: Absent Respiratory: Satisfactory Pain: Controlled Complications: Absent Post Op Complications Complications None Follow Up Care/Instructions Patient Instructions None needed. Anesthesia/Patient Condition Patient Condition Patient is doing well, no complaints, stable vital signs, no apparent adverse anesthesia problems. No complications reported per nursing. NATANAEL WASHINGTON CRNA Aug 24, 2022 10:26
[2022-08-24] MEDS ORDERED: morphine INJ 10 MG/ML 1ML (SYR OR VIAL) IVP ONE (10:30)
[2022-08-24] MEDS ORDERED: fentaNYL INJ 100 MCG/2 ML AMP IVP ONE (10:30)
[2022-08-24] MEDS ORDERED: morphine INJ 10 MG/ML 1ML (SYR OR VIAL) ONE (10:42)
--- NOTE | 2022-08-24 20:00 | OPERATIVE REPORT ---
PREOPERATIVE DIAGNOSES: 1. A 47-year-old female with abnormal uterine bleeding. 2. Thickened endometrium. POSTOPERATIVE DIAGNOSES: 1. A 47-year-old female with abnormal uterine bleeding. 2. Thickened endometrium. PROCEDURE: D and C. SURGEON: Candelario Barcenas DO ANESTHESIA: General LMA. ESTIMATED BLOOD LOSS: Minimal. URINE OUTPUT: 50 mL drained at the end of the procedure. FLUIDS: 500 mL of lactated Ringer's solution. FINDINGS: Grossly normal-appearing external female genitalia, grossly normal-appearing vagina and cervix. SPECIMEN SENT: Endometrial curettings. INDICATIONS FOR PROCEDURE: This 47-year-old female is a patient who had sought care in my office as a consultation from Dr. Tyson with heavy irregular bleeding. I discussed with the patient ultrasound findings of thickened endometrium, which could be suggestive of malignancy or something benign including a neoplasm. We discussed proceeding with endometrial biopsy and how this would give us an answer, but not a definitive therapy and how D and C may allow me to have definitive therapy for the thickened endometrium. She was agreeable to proceed with D and C. Risks of procedure discussed with the patient in detail including risk of anesthesia. After all of her questions were answered, consent was obtained, the patient was taken to the operating room. OPERATIVE REPORT IN DETAIL: Once in the operating room, general anesthesia was administered, found to be adequate, was placed in dorsal lithotomy position, prepped and draped in normal sterile fashion. A timeout was performed. A weighted speculum was inserted to the patient's vagina. Right angle retractor was used to visualize the cervix, was grasped at 12 o'clock position using a long Allis clamp. I then performed paracervical block at 9 o'clock and 3 o'clock on the cervix. Care was taken to aspirate for injecting 5 mL of 0.25% Marcaine injected into each site. I then gently sound the uterine cavity, depth was found to be 8 cm. I then gently dilated the cervix using Hegar dilators to maximum dilatation approximately 8 mm, at which point I performed a gentle curettage of the endometrium collecting as much endometrial tissue as I can from the endometrium until a gentle uterine cry is appreciated. There was no active bleeding noted from the uterus at that point. I removed all other instruments from the patient's vagina. The patient tolerated the procedure well and sent to recovery area in stable condition. Lap and sponge counts were correct at the end of the procedure. Instrument counts correct as well. Job ID: [id number] DocumentID: [id number] Dictated Date: 08/24/2022 12:39:39 [employer] Specialist Date: 08/24/2022 19:58:00 Dictated By: CANDELARIO BARCENAS DO
== END 2022-08-24 12:10 | disposition home or self-care (01) ==
LOC: SDC 08:36
PROVIDERS: ATTEND Obstetrics & Gynecology
DX: N84.0 Polyp of corpus uteri (principal); E66.9 Obesity, unspecified; F17.290 Nicotine dependence, other tobacco product, uncomplicated; Z68.30 Body mass index [BMI] 30.0-30.9, adult; Z28.310 Unvaccinated for COVID-19
CPT/HCPCS: 36415; 84703; 85025; 86850; 86900; 86901; 87081

== ENCOUNTER → 2023-03-14 | Outpatient (CLI) | payer BC ==
--- NOTE | 2023-03-14 14:17 | Diagnostic Imaging Report ---
INDICATION: Routine screening. COMPARISON: 06/10/2020 and 02/25/2017. TECHNIQUE: 2D and 3D bilateral screening mammography was performed with CAD. FINDINGS: Both breasts are heterogeneously dense, limiting the sensitivity of mammography. The overall parenchymal pattern is stable. The benign nodule in the upper outer right breast is stable. No spiculated mass or malignant-appearing microcalcifications are seen. The axillae are unremarkable. IMPRESSION: No mammographic features suspicious for malignancy are identified. ACR BI-RADS Category 2: Benign findings. Result letter will be mailed to the patient. Note: At least 10% of breast cancer is not imaged by mammography. Dictated by: Dictated on workstation # [id number]
== END ==
LOC: RAD 09:01
PROVIDERS: ATTEND Physician Assistant
DX: Z12.31 Encounter for screening mammogram for malignant neoplasm of breast (principal)
CPT/HCPCS: 77063; 77067